=== PATIENT | female | born 1990 | race Caucasian/White ===

== ENCOUNTER 2018-02-07 17:40 | Emergency (ER) | payer BC, OTHER ==
[~2018-02-07] VITALS: Ht 170.2 cm; Wt 61.2 kg
[2018-02-07] MEDS ORDERED: TETRACAINE 0.5% OPHTH SOLN 4 ML BTL (SINGLE DOSE ONLY) OU ONE (17:45)
[2018-02-07] MEDS ORDERED: FLUORESCEIN (FLUOR-I-STRIPS) 1 MG STRP OU ONE (17:45)
[2018-02-07] MEDS ORDERED: BSS 15 ML IR ONE (17:45)
[2018-02-07] MEDS ORDERED: RX-GENTAMICIN SULFATE 0.3% OP 5 ML BTL OD STA (18:16)
--- NOTE | 2018-02-07 18:25 | ED EENT ---
History of Present Illness General Chief Complaint: Eye Problems Stated Complaint: SCRATCH ON R EYE, POSS SINUS INFECTION Source: patient Exam Limitations: no limitations History of Present Illness Date Seen by Provider: Feb 07, 2018 Time Seen by Provider: 18:18 Initial Comments To ER with reports of a possible corneal abrasion on the right eye. She states that about 2 hours prior to arrival her young son actually scratched her eye with his fingernails. She is also concerned that she may have a sinus infection , she has nasal congestion/rhinorrhea despite the level cetirizine that she takes daily. No fevers or unilateral face pain. Nasal congestion/rhinorrhea has been present for about 1-2 weeks Timing/Duration: abrupt Severity: moderate Location: eye (R) Associated Symptoms: No facial pain/swelling; sinus infection Allergies and Home Medications Allergies Coded Allergies: No Known Drug Allergies (Unverified , 02/07/18) Patient Home Medication List Home Medication List Reviewed: Yes Review of Systems Review of Systems Constitutional: see HPI Eyes: See HPI, Decreased Acuity, Foreign Body Sensation Ears: No Symptoms Reported Nose: see HPI, congestion Mouth: no symptoms reported Throat: no symptoms reported Respiratory: see HPI; No cough Cardiovascular: no symptoms reported Past Fmrdzec-Bxwzqk-Gcrztv Hx Patient Social History Alcohol Use: Denies Use Recreational Drug Use: No Smoking Status: Never a Smoker Recent Foreign Travel: No Contact w/Someone Who Travel: No Past Medical History Surgeries: No Respiratory: No Cardiac: No Neurological: No Genitourinary: No Gastrointestinal: No Musculoskeletal: No Endocrine: No HEENT: No Cancer: No Psychosocial: No Integumentary: No Physical Exam Height, Weight, BMI Height: '" Weight: lbs. oz. kg; BMI Method: General Appearance: WD/WN, no apparent distress Eyes: right eye other (there is an area of dye uptake, in fact 2 separate small 1-2 mm in diameter area of dye uptake at the inferior aspect of the cornea at the 6 and 8:00 position near the limbus consistent with corneal abrasion on the RIGHT eye); bilateral eye normal inspection, bilateral eye PERRL , bilateral eye EOMI Ears: bilateral ear auricle normal, bilateral ear canal normal, bilateral ear TM normal Neck: non-tender, full range of motion Respiratory: no respiratory distress, no accessory muscle use Neurologic/Psychiatric: alert, normal mood/affect, oriented x 3 Skin: normal color, warm/dry Progress/Results/Core Measures Results/Orders My Orders Orders - AUDRA ARNOLD APRN Tetracaine 0.5% Ophth Renee Sdv (Tetracai (02/07/18 17:45) Fluorescein Strips ([place]) (02/07/18 17:45) Balanced Salt Irrigation Soln (Bss Irrig (02/07/18 17:45) Rx-Gentamicin Ophth Soln (Rx-Gentamicin (02/07/18 18:16) Rx-Hydrocodone/Apap 5-325 Mg (Rx-Vicodin (02/07/18 18:30) Medications Given in ED Current Medications Medications Dose Ordered Sig/Katy Route Start Time Stop Time Status Last Admin Dose Admin Balanced Salt Solution 15 ml ONCE ONCE IR 02/07/18 17:45 02/07/18 17:46 DC 02/07/18 18:08 15 ML Fluorescein Sodium 1 mg ONCE ONCE OU 02/07/18 17:45 02/07/18 17:46 DC 02/07/18 18:08 1 MG Tetracaine HCl 4 ml ONCE ONCE OU 02/07/18 17:45 02/07/18 17:46 DC 02/07/18 18:08 4 ML Departure Communication (Admissions) right eye vision 20/20 and left eye 20/25 Impression Primary Impression: Corneal abrasion Qualified Codes: S05.01XA - Injury of conjunctiva and corneal abrasion without foreign body, right eye, initial encounter Additional Impression: Sinusitis Qualified Codes: J01.90 - Acute sinusitis, unspecified Disposition: HOME, SELF-CARE Condition: Stable Departure-Patient Inst. Decision time for Depature: 18:21 Patient Instructions: Corneal Abrasion (DC) Add. Discharge Instructions: 2 drops of gentamycin solution every 4 hours to the right eye for [address] Stevens for follow up on Friday hydrocodone for pain 1 tablet every 4 hours. Antibiotics as directed for the sinus infection. Wait until friday to start the steroids. All discharge instructions reviewed with patient and/or family. Voiced understanding. Scripts Prednisone (Prednisone) 20 Mg Tab 40 MG PO DAILY, #8 TAB Prov: AUDRA ARNOLD APRN 02/07/18 Azithromycin (Azithromycin) 250 Mg Tablet 250 MG PO DAILY, #4 TAB Prov: AUDRA ARNOLD APRN 02/07/18 AUDRA ARNOLD APRN Feb 07, 2018 18:25
[2018-02-07] MEDS ORDERED: AZIT250T12 PO (18:27)
[2018-02-07] MEDS ORDERED: PRD20T PO (18:27)
[2018-02-07] MEDS ORDERED: AZITHROMYCIN 250 MG TAB (ZITHROMAX) PO SCH (18:30)
[2018-02-07] MEDS ORDERED: RX-HYDROCODONE/APAP 5/325 MG #4 TAB PK PO PRN (18:30)
[2018-02-07 18:41] VITALS: BP 125/77
== END 2018-02-07 18:41 | disposition home or self-care (01) ==
LOC: ER 17:41
DX: S05.01XA Injury of conjunctiva and corneal abrasion without foreign body, right eye, initial encounter (principal); J32.9 Chronic sinusitis, unspecified; X58.XXXA Exposure to other specified factors, initial encounter
CPT/HCPCS: 99283